=== PATIENT | female | born 1955 | race African-American/Black ===

== ENCOUNTER 2018-03-16 19:06 | Emergency (ER) | payer OTHER ==
[2018-03-16 19:21] LABS: POC GLUCOSE 113 mg/dL (70-99)
[2018-03-16 19:58] LABS: ADD MAN DIFF? NO
[2018-03-16 20:00] LABS: BASO % 1 % (0-3); EOS # 0.2 x10^3/uL (0.0-0.7); EOS % 3 % (0-3); HEMATOCRIT 40.5 % (36.0-47.0); HEMOGLOBIN 13.7 g/dL (12.0-15.5); LYMPH # 2.8 x10^3/uL (1.0-4.8); LYMPH % 42 % (24-48); MEAN CORPUSCULAR HEMOGLOBIN 28 pg (25-35); MEAN CORPUSCULAR HGB CONC 34 g/dL (31-37); MEAN CORPUSCULAR VOLUME 83 fL (79-100); MONO # 0.6 x10^3/uL (0.0-1.1); MONO % 9 % (0-9); NEUT % 46 % (31-73); PLATELET COUNT 244 x10^3/uL (140-400); RED CELL DISTRIBUTION WIDTH 14.4 % (11.5-14.5); WHITE BLOOD COUNT 6.6 x10^3/uL (4.0-11.0)
[2018-03-16] MEDS ORDERED: ONDANSETRON PF 4 MG/2 ML VIAL. IV (20:00)
[2018-03-16] MEDS ORDERED: IV NORMAL SALINE 1000ML BAG 1,000 ML IV (20:00)
[2018-03-16 20:11] LABS: BILIRUBIN,URINE SMALL (NEG); CLARITY,URINE CLEAR; COLOR,URINE YELLOW; GLUCOSE,URINE NEGATIVE (NEG); NITRITE,URINE NEGATIVE (NEG); PROTEIN,URINE NEGATIVE (NEG-TRACE)
[2018-03-16 20:17] LABS: ANION GAP 12 (6-14); BLOOD UREA NITROGEN 28 mg/dL (7-20); BUN/CREATININE RATIO 12 (6-20); CARBON DIOXIDE 28 mmol/L (21-32); CHLORIDE 101 mmol/L (98-107); CREATININE 2.4 mg/dL (0.6-1.0); GFR 24.6; GLUCOSE 106 mg/dL (70-99); POTASSIUM 3.5 mmol/L (3.5-5.1); SODIUM 141 mmol/L (136-145)
[2018-03-16 20:23] LABS: BACTERIA,URINE MODERATE /HPF (0-FEW); SQUAMOUS EPITHELIAL CELL,UR FEW /LPF
[2018-03-16 20:24] LABS: ALBUMIN 4.3 g/dL (3.4-5.0); ALBUMIN/GLOBULIN RATIO 1.5 (1.0-1.7); ALK PHOS 61 U/L (46-116); ALT (SGPT) 15 U/L (14-59); AST (SGOT) 15 U/L (15-37); CREATINE KINASE 262 U/L (26-192); HYALINE CASTS, URINE MANY /HPF; TOTAL BILIRUBIN 0.5 mg/dL (0.2-1.0); TOTAL PROTEIN 7.2 g/dL (6.4-8.2)
== END 2018-03-16 20:51 | disposition home or self-care (01) ==
LOC: ER 19:06
DX: T67.5XXA Heat exhaustion, unspecified, initial encounter (principal); N28.9 Disorder of kidney and ureter, unspecified; M54.32 Sciatica, left side; E78.00 Pure hypercholesterolemia, unspecified; E11.9 Type 2 diabetes mellitus without complications; I10 Essential (primary) hypertension; I25.10 Atherosclerotic heart disease of native coronary artery without angina pectoris; K21.9 Gastro-esophageal reflux disease without esophagitis; I25.2 Old myocardial infarction; Z88.5 Allergy status to narcotic agent
CPT/HCPCS: 36415; 80053; 81001; 82550; 82962; 85025; 87086; 93005; 99285-25

== ENCOUNTER 2018-07-06 13:11 | Emergency (ER) | payer OTHER ==
[~2018-07-06] VITALS: Ht 162.6 cm; Wt 54.4 kg
[~2018-07-06 13:11] MED LIST: AMLO10TA6 PO; ASPI325T8 PO; CYCL10TA2 PO; FAMO-63 PO; GLIM4TAB2 PO; GUAI600T47 PO; HYDR-971 PO; LOSA100T7 PO; LOSA1TAB22 PO; METF500T16 PO; ONDA4TAB10 PO; PANT40TA5 PO; SIMV10TA3 PO; SUCR1TAB35 PO; TRAZ150T49 PO
[2018-07-06] MEDS ORDERED: IPRATRPIUM/ALBUTEROL 0.5/2.5MG 3 ML NEBU. NEB ONE (13:30)
--- NOTE | 2018-07-06 14:15 | PHYS DOC ---
Past Medical History Past Medical History: CAD, Diabetes-Type II, GERD, High Cholesterol, Hypertension, [place] Additional Past Medical Histor: IVC Filter Past Surgical History: Tonsillectomy, Other Alcohol Use: None Drug Use: None Adult General Chief Complaint Chief Complaint: SHORTNESS OF BREATH HPI HPI Patient is a 62 year old female who presents with progressive shortness of breath over the last several weeks. She states her doctor changed her medications around about 5 weeks ago and she feels it has "messed her body up". She reports occasional chest pain but none currently and weakness and shortness of breath that was initially with exertion but now is at rest. She denies any obvious edema. Pt denies history of COPD and does not smoke. She did have an PA in 2012 and open heart surgery for a valve replacement in 2013. Pt denies being diagnosed with CHF in the past and cannot recall having an ECHO anytime in the past few years. Pt also reports N/V and weight loss of over 15 lbs in the last 5 weeks. Review of Systems Review of Systems Constitutional: Denies fever or chills HENT: Denies nasal congestion or sore throat Respiratory: Reports SOB and occasional cough Cardiovascular: Reports intermittent chest pain. GI: Denies abdominal pain, diarrhea or constipation. Reports nausea and vomiting. Musculoskeletal: Denies back pain or joint pain Integument: Denies rash or skin lesions Neurologic: Denies headache, focal weakness or sensory changes Endocrine: Reports increase in her blood sugars. All other systems were reviewed and found to be within normal limits, except as documented in this note. Current Medications Current Medications Current Medications Medications (Trade) Dose Ordered Sig/Poppy Start Time Stop Time Status Last Admin Dose Admin Albuterol/ Ipratropium (Duoneb) 3 ml 1X ONCE 07/06/18 13:30 07/06/18 13:31 DC 07/06/18 13:56 3 ML Allergies Allergies Allergies Coded Allergies Type Severity Reaction Last Updated Verified codeine Allergy Intermediate rash 05/01/14 Yes Physical Exam Physical Exam Constitutional: Well developed, well nourished, no acute distress, non-toxic appearance. Appears uncomfortable but no distress. HENT: Normocephalic, atraumatic, oropharynx moist, no oral exudates, nose normal. Eyes: PERRLA, EOMI, conjunctiva normal, no discharge. Neck: Normal range of motion, no tenderness, supple, no stridor. Cardiovascular:Heart rate regular rhythm, murmur present Lungs & Thorax: B crackles with decreased breath sounds. Abdomen: Bowel sounds normal, soft, no tenderness, no masses, no pulsatile masses. Skin: Warm, dry, no erythema, no rash. No edema noted. Extremities: No tenderness, no cyanosis, no clubbing, ROM intact, no edema. Neurologic: Alert and oriented X 3, normal motor function, normal sensory function, no focal deficits noted. Psychologic: Affect normal, judgement normal, mood normal. Current Patient Data Vital Signs Vital Signs Date Time Temp Pulse Resp B/P (MAP) Pulse Ox O2 Delivery O2 Flow Rate FiO2 07/06/18 14:03 98.8 68 16 135/60 (85) 100 Room Air 98.8 Lab Values Laboratory Tests Test 07/06/18 14:25 White Blood Count 7.5 x10^3/uL (4.0-11.0) Red Blood Count 4.87 x10^6/uL (3.50-5.40) Hemoglobin 13.4 g/dL (12.0-15.5) Hematocrit 39.4 % (36.0-47.0) Mean Corpuscular Volume 81 fL (79-100) Mean Corpuscular Hemoglobin 28 pg (25-35) Mean Corpuscular Hemoglobin Concent 34 g/dL (31-37) Red Cell Distribution Width 14.6 % (11.5-14.5) H Platelet Count 439 x10^3/uL (140-400) H Neutrophils (%) (Auto) 55 % (31-73) Lymphocytes (%) (Auto) 33 % (24-48) Monocytes (%) (Auto) 9 % (0-9) Eosinophils (%) (Auto) 2 % (0-3) Basophils (%) (Auto) 1 % (0-3) Neutrophils # (Auto) 4.1 x10^3uL (1.8-7.7) Lymphocytes # (Auto) 2.5 x10^3/uL (1.0-4.8) Monocytes # (Auto) 0.7 x10^3/uL (0.0-1.1) Eosinophils # (Auto) 0.1 x10^3/uL (0.0-0.7) Basophils # (Auto) 0.1 x10^3/uL (0.0-0.2) Sodium Level 134 mmol/L (136-145) L Potassium Level 3.5 mmol/L (3.5-5.1) Chloride Level 97 mmol/L (98-107) L Carbon Dioxide Level 26 mmol/L (21-32) Anion Gap 11 (6-14) Blood Urea Nitrogen 13 mg/dL (7-20) Creatinine 1.4 mg/dL (0.6-1.0) H Estimated GFR (Cockcroft-Gault) 45.8 Glucose Level 100 mg/dL (70-99) H Calcium Level 9.2 mg/dL (8.5-10.1) Total Bilirubin 0.4 mg/dL (0.2-1.0) Direct Bilirubin 0.2 mg/dL (0.0-0.2) Aspartate Amino Transferase (AST) 18 U/L (15-37) Alanine Aminotransferase (ALT) 21 U/L (14-59) Alkaline Phosphatase 82 U/L (46-116) Troponin I Quantitative < 0.017 ng/mL (0.000-0.055) ZM-[id number]-M-Type Natriuretic Peptide 222 pg/mL (0-124) H Total Protein 7.7 g/dL (6.4-8.2) Albumin 3.4 g/dL (3.4-5.0) Lipase 231 U/L (73-393) Laboratory Tests 07/06/18 14:25 Laboratory Tests 07/06/18 14:25 EKG EKG NSR with pulse [address] elevation or ischemic findings. Radiology/Procedures Radiology/Procedures CXR: atelectasis, no infiltrates or pulmonary edema noted Impressions: Dyspnea, unclear etiology Course & Med Decision Making Course & Med Decision Making Pertinent Labs and Imaging studies reviewed. (See chart for details) Pt's labs are reassuring. Her Creatinine is 1.4, however prior was over 2.0, so this is greatly improved. Discussed with pt that this could be some mild fluid retention since her diuretic was recently stopped but that she feels much better after nebulizer treatment is a good sign. I would recommend very close f /u with her PCP for re-evaluation and will add an albuterol inhaler and low dose HCTZ to her regimen. Pt will call to schedule and agrees to return if symptoms worsen at anytime. Dragon Disclaimer Dragon Disclaimer This electronic medical record was generated, in whole or in part, using a voice recognition dictation system. Departure Departure Impression: Primary Impression: Dyspnea Disposition: 01 HOME, SELF-CARE Condition: IMPROVED Referrals: UNKNOWN PCP NAME (PCP) Patient Instructions: Shortness of Breath, [id number] Additional Instructions: Call your primary care doctor to schedule a close follow up and return if symptoms worsen at anytime. Scripts Hydrochlorothiazide (HYDROCHLOROTHIAZIDE TABLET) 12.5 Mg Tablet 1 TAB PO DAILY, #30 TAB 5 Refills Prov: MAMI LISA 07/06/18 Albuterol Sulfate (PROAIR HFA INHALER) 8.5 Gm Hfa.aer.ad 1 PUFF INH PRN Q6HRS PRN for SHORTNESS OF BREATH for 7 Days, #1 INHALER 0 Refills Prov: MAMI LISA 07/06/18 MAMI LISA Jul 06, 2018 14:15
--- NOTE | 2018-07-06 14:18 | EKG ---
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
[2018-07-06 14:30] LABS: BASO # 0.1 x10^3/uL (0.0-0.2); BASO % 1 % (0-3); EOS # 0.1 x10^3/uL (0.0-0.7); EOS % 2 % (0-3); HEMATOCRIT 39.4 % (36.0-47.0); HEMOGLOBIN 13.4 g/dL (12.0-15.5); LYMPH # 2.5 x10^3/uL (1.0-4.8); LYMPH % 33 % (24-48); MEAN CORPUSCULAR HEMOGLOBIN 28 pg (25-35); MEAN CORPUSCULAR HGB CONC 34 g/dL (31-37); MEAN CORPUSCULAR VOLUME 81 fL (79-100); MONO # 0.7 x10^3/uL (0.0-1.1); MONO % 9 % (0-9); NEUT # 4.1 x10^3uL (1.8-7.7); NEUT % 55 % (31-73); PLATELET COUNT 439 x10^3/uL (140-400); RED BLOOD COUNT 4.87 x10^6/uL (3.50-5.40); RED CELL DISTRIBUTION WIDTH 14.6 % (11.5-14.5); WHITE BLOOD COUNT 7.5 x10^3/uL (4.0-11.0)
--- NOTE | 2018-07-06 14:30 | RAD ---
EXAM: Chest, single view. HISTORY: Congestion. COMPARISON: 06/20/2017 FINDINGS: A frontal view of the chest obtained. There is linear atelectasis within the right mid thorax. There is no consolidation, pleural effusion or pneumothorax. There is a stable prominent cardiac silhouette and evidence of prior median sternotomy and cardiac valve surgery. IMPRESSION: Linear atelectasis within the right mid thorax. Electronically signed by: Montserrat Chacon MD (07/06/2018 2:26 PM) [place] [id number]
[2018-07-06 14:41] LABS: CALCIUM 9.2 mg/dL (8.5-10.1); CREATININE 1.4 mg/dL (0.6-1.0); GFR 45.8; POTASSIUM 3.5 mmol/L (3.5-5.1)
[2018-07-06 14:47] LABS: ALBUMIN 3.4 g/dL (3.4-5.0); DIRECT BILIRUBIN 0.2 mg/dL (0.0-0.2); TOTAL BILIRUBIN 0.4 mg/dL (0.2-1.0); TOTAL PROTEIN 7.7 g/dL (6.4-8.2)
[2018-07-06] MEDS ORDERED: HYDR12.58 PO (15:21)
[2018-07-06] MEDS ORDERED: PROAIR HFA8.5 GM INH (15:21)
[2018-07-06 15:33] VITALS: BP 125/60
== END 2018-07-06 15:35 | disposition home or self-care (01) ==
LOC: ER 13:11
DX: R06.00 Dyspnea, unspecified (principal); R07.89 Other chest pain; R53.1 Weakness; E78.00 Pure hypercholesterolemia, unspecified; K21.9 Gastro-esophageal reflux disease without esophagitis; E11.9 Type 2 diabetes mellitus without complications; I10 Essential (primary) hypertension; I25.10 Atherosclerotic heart disease of native coronary artery without angina pectoris; I25.2 Old myocardial infarction; Z88.5 Allergy status to narcotic agent
CPT/HCPCS: 36415; 71045; 80048; 80076; 83690; 83880; 84484; 85025; 93005; 94640; 99285; J7620

== ENCOUNTER 2020-07-10 14:26 | Emergency (ER) | payer OTHER, MEDICARE ==
[~2020-07-10] VITALS: Ht 162.6 cm; Wt 59.0 kg
[~2020-07-10 14:26] MED LIST changes: +ALBU2.5V8 INH; -AMLO10TA6 PO; +AMLO10TA8 PO; -GLIM4TAB2 PO; +GLIM4TAB8 PO; +HYDR-3164 PO; -HYDR-971 PO; +HYDR12.58 PO; +LOSA100T14 PO; -LOSA100T7 PO; -PANT40TA5 PO; +PANT40TA77 PO; +SIMV10TA15 PO; -SIMV10TA3 PO
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
[2020-07-10] MEDS ORDERED: NAPROXEN 500 MG TABLET PO STA (16:42)
[2020-07-10] MEDS ORDERED: CYCLOBENZAPRINE 10 MG TABLET. PO ONE (16:45)
[2020-07-10] MEDS ORDERED: CYCL10TA2 PO (17:22)
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
[2020-07-10 17:40] VITALS: BP 135/62
== END 2020-07-10 17:40 | disposition home or self-care (01) ==
LOC: ER 14:26
DX: S60.221A Contusion of right hand, initial encounter (principal); M25.512 Pain in left shoulder; E11.9 Type 2 diabetes mellitus without complications; E78.00 Pure hypercholesterolemia, unspecified; K21.9 Gastro-esophageal reflux disease without esophagitis; I10 Essential (primary) hypertension; I25.2 Old myocardial infarction; I25.10 Atherosclerotic heart disease of native coronary artery without angina pectoris; Z87.891 Personal history of nicotine dependence; Z88.5 Allergy status to narcotic agent; V49.49XA Driver injured in collision with other motor vehicles in traffic accident, initial encounter; Y92.488 Other paved roadways as the place of occurrence of the external cause; Y93.89 Activity, other specified; Y99.8 Other external cause status
CPT/HCPCS: 73030; 73130; 99284